=== PATIENT | female | born 1990 | race Caucasian/White ===

== ENCOUNTER 2018-11-15 19:56 | Emergency (ER) | payer MEDICAID, SELFPAY ==
--- NOTE | 2018-11-15 20:51 | W.ED.GENAD ---
Discharge Plan Disposition Patient Disposition: HOME Condition: Good Discharge Details Chief Complaint: RespSymp Clinical Impression: Bronchitis, RAD (reactive airway disease) Primary Care Provider: Justino Alvarez ED Provider: Bruce Stone Meds and New Rx's Prescriptions: New azithromycin 250 mg tablet 250 mg PO DAILY 4 Days Qty: 4 RF: 0 prednisone 20 mg tablet 40 mg PO DAILY Qty: 6 RF: 0 albuterol sulfate 90 mcg/actuation HFA aerosol inhaler 2 puff IH Q4H PRN (Reason: shortness of breath or wheezing) Qty: 8.5 RF: 0 Discharge Instructions Instructions: Acute Bronchitis (ED), Reactive Airways Disease (ED) Additional Instructions: Use inhaler every 4-6 hours as needed for cough and wheezing. Antibiotic and steroid once a night. Follow-up with primary care as planned. Return to the emergency department if fever, worsening shortness of breath, chest pain, other concerns. Referrals: Justino Alvarez [Primary Care Provider] - Discharge Data Discharge Date/Time-TO BE ENTERED AT DEPARTURE: 11/15/18 22:35 Medical Decision Making Patient is presenting with a month of respiratory symptoms. Likely viral with residual reactive airway. Could be atypical. She is afebrile here. She did have some expiratory wheezing and a few rhonchi on exam. She was given an albuterol and felt that her breathing was much better. Vital signs obtained after albuterol show a tachycardia but normal O2 saturation on room air. Urine test negative and her chest x-ray was obtained. Per my review there is no infiltrate, preliminary radiology feels that there is some inflammation/infection with bronchial wall thickening in the right hilum.. We will go ahead and cover with azithromycin. Will also give a few days of prednisone. Will send home with albuterol inhaler. We will have her follow up with her primary care as already scheduled. Return to ED if any worsening symptoms. Patient's heart rate went up after albuterol. Did not really come down but she felt much better. She states that she is anxious about being here. Will discharge home at this time. HPI General Mode of arrival: ambulatory. Date/Time Provider Initiated Documentation: 11/15/18 20:30. Limitations to Documentation: no limitations. Information obtained by: patient. HPI Narrative: Patient here with complaint of cough and chest congestion for almost a month. She has been unable to get in to see her primary care physician who is over in [place]. Initially, she did have fever and congestion but subsequently has just had continued cough, chest congestion, mild shortness of breath. She feels she is getting slightly worse over time instead of better. She denies chest pain. She has a little bit of left earache and a scratchy throat. She has no abdominal pain, nausea, vomiting, diarrhea. She does not smoke. She is not exposed to secondhand smoke. She does not have a history of asthma. She finally came to ED as here PCP cannot see her for another 3 weeks. Related Data Home Medications Medication Instructions Recorded Confirmed albuterol sulfate 2 puff IH Q4H PRN #8.5 gm 11/15/18 azithromycin 250 mg PO DAILY 4 Days #4 tab 11/15/18 prednisone 40 mg PO DAILY #6 tab 11/15/18 Previous Rx's Medication Instructions Recorded albuterol sulfate 2 puff IH Q4H PRN #8.5 gm 11/15/18 azithromycin 250 mg PO DAILY 4 Days #4 tab 11/15/18 prednisone 40 mg PO DAILY #6 tab 11/15/18 Allergies Allergy/AdvReac Type Severity Reaction Status Date / Time Penicillins Allergy Intermediate hives Verified 11/15/18 21:06 Review of Systems Constitutional Denies chills, Denies fever(s), Denies headache(s), Denies malaise, Denies poor appetite and Denies weakness Eyes Denies eye discharge and Denies eye pain ENT Denies change in voice, Reports otalgia, Denies facial pain, Denies headache(s), Denies nasal congestion, Denies neck pain, Denies sinus pain, Denies sinus pressure and Denies sore throat Cardiovascular Denies chest pain, Denies diaphoresis, Denies syncope, Denies leg edema, Denies lightheadedness, Denies palpitations, Denies dyspnea and Reports dyspnea on exertion (mild) Respiratory Reports chest congestion, Reports cough, Denies dyspnea and Reports dyspnea on exertion (mild) Gastrointestinal Denies abdominal pain, Denies diarrhea, Denies nausea and Denies vomiting Musculoskeletal Denies back pain, Denies myalgias, Denies neck pain and Denies numbness Neurologic Denies syncope, Denies headache(s), Denies numbness and Denies weakness Endocrine Denies palpitations [facility] Surgical History S/P unilateral salpingo-oophorectomy (Inactive) Social History Smoking/Tobacco Use Status: Never Exam Const General: cooperative, comfortable and no acute distress Orientation: alert and oriented x3 HENMT Head: normocephalic and atraumatic Ears: external ears normal and TM's normal bilaterally Face and sinus: normal facial exam Mouth: oropharynx normal and moist mucous membranes Throat: posterior oropharynx normal Eyes Conjunctivae: conjunctivae normal Pupils: PERRL EOM: EOM intact bilaterally Neck Neck: full ROM, no lymphadenopathy, trachea midline and supple Resp Effort & Inspection: normal respiratory effort Auscultation: no rales, rhonchi (few scattered) and wheezes expiratory wheezes and lower bilaterally Cardio Rate: regular rate Rhythm: regular rhythm Heart Sounds: S1 normal and S2 normal Neuro General: alert, oriented x3, no focal motor deficits and CN's II-XI intact bilaterally
[2018-11-15 20:53] VITALS: PULSE 110; RESP 16; O2SAT 98
[2018-11-15] MEDS: Albuterol 2.5 MG/3 ML INH SOLN VIAL UPD (20:53)
--- NOTE | 2018-11-15 20:54 | ED.GENADUL_ITS ---
Discharge Plan Disposition Patient Disposition: HOME Condition: Good Discharge Details Chief Complaint: RespSymp Clinical Impression: Bronchitis, RAD (reactive airway disease) Primary Care Provider: Justino Alvarez ED Provider: Bruce Stone Meds and New Rx's Prescriptions: New azithromycin 250 mg tablet 250 mg PO DAILY 4 Days Qty: 4 RF: 0 prednisone 20 mg tablet 40 mg PO DAILY Qty: 6 RF: 0 albuterol sulfate 90 mcg/actuation HFA aerosol inhaler 2 puff IH Q4H PRN (Reason: shortness of breath or wheezing) Qty: 8.5 RF: 0 Discharge Instructions Instructions: Acute Bronchitis (ED), Reactive Airways Disease (ED) Additional Instructions: Use inhaler every 4-6 hours as needed for cough and wheezing. Antibiotic and steroid once a night. Follow-up with primary care as planned. Return to the emergency department if fever, worsening shortness of breath, chest pain, other concerns. Referrals: Justino Alvarez [Primary Care Provider] - Discharge Data Discharge Date/Time-TO BE ENTERED AT DEPARTURE: 11/15/18 22:35 Medical Decision Making Patient is presenting with a month of respiratory symptoms. Likely viral with residual reactive airway. Could be atypical. She is afebrile here. She did have some expiratory wheezing and a few rhonchi on exam. She was given an albuterol and felt that her breathing was much better. Vital signs obtained after albuterol show a tachycardia but normal O2 saturation on room air. Urine test negative and her chest x-ray was obtained. Per my review there is no infiltrate, preliminary radiology feels that there is some inflammation/infection with bronchial wall thickening in the right hilum.. We will go ahead and cover with azithromycin. Will also give a few days of prednisone. Will send home with albuterol inhaler. We will have her follow up with her primary care as already scheduled. Return to ED if any worsening symptoms. Patient's heart rate went up after albuterol. Did not really come down but she felt much better. She states that she is anxious about being here. Will discharge home at this time. HPI General Mode of arrival: ambulatory . Date/Time Provider Initiated Documentation: 11/15/18 20:30 . Limitations to Documentation: no limitations . Information obtained by: patient . HPI Narrative: Patient here with complaint of cough and chest congestion for almost a month. She has been unable to get in to see her primary care physician who is over in [place]. Initially, she did have fever and congestion but subsequently has just had continued cough, chest congestion, mild shortness of breath. She feels she is getting slightly worse over time instead of better. She denies chest pain. She has a little bit of left earache and a scratchy throat. She has no abdominal pain, nausea, vomit ing, diarrhea. She does not smoke. She is not exposed to secondhand smoke. She does not have a history of asthma. She finally came to ED as here PCP cannot see her for another 3 weeks. Related Data Home Medications Medication Instructions Recorded Confirmed albuterol sulfate 2 puff IH Q4H PRN #8.5 gm 11/15/18 azithromycin 250 mg PO DAILY 4 Days #4 tab 11/15/18 prednisone 40 mg PO DAILY #6 tab 11/15/18 Previous Rx's Medication Instructions Recorded albuterol sulfate 2 puff IH Q4H PRN #8.5 gm 11/15/18 azithromycin 250 mg PO DAILY 4 Days #4 tab 11/15/18 prednisone 40 mg PO DAILY #6 tab 11/15/18 Allergies Allergy/AdvReac Type Severity Reaction Status Date / Time Penicillins Allergy Intermediate hives Verified 11/15/18 21:06 Review of Systems Constitutional Denies chills, Denies fever(s), Denies headache(s), Denies malaise, Denies poor appetite and Denies weakness Eyes Denies eye discharge and Denies eye pain ENT Denies change in voice, Reports otalgia, Denies facial pain, Denies headache(s), Denies nasal congestion, Denies neck pain, Denies sinus pain, Denies sinus pressure and Denies sore throat Cardiovascular Denies chest pain, Denies diaphoresis, Denies syncope, Denies leg edema, Denies lightheadedness, Denies palpitations, Denies dyspnea and Reports dyspnea on exertion (mild) Respiratory Reports chest congestion, Reports cough, Denies dyspnea and Reports dyspnea on exertion (mild) Gastrointestinal Denies abdominal pain, Denies diarrhea, Denies nausea and Denies vomiting Musculoskeletal Denies back pain, Denies myalgias, Denies neck pain and Denies numbness Neurologic Denies syncope, Denies headache(s), Denies numbness and Denies weakness Endocrine Denies palpitations [facility] Surgical History S/P unilateral salpingo-oophorectomy (Inactive) Social History Smoking/Tobacco Use Status: Never Exam Const General: cooperative, comfortable and no acute distress Orientation: alert and oriented x3 HENMT Head: normocephalic and atraumatic Ears: external ears normal and TM's normal bilaterally Face and sinus: normal facial exam Mouth: oropharynx normal and moist mucous membranes Throat: posterior oropharynx normal Eyes Conjunctivae: conjunctivae normal Pupils: PERRL EOM: EOM intact bilaterally Neck Neck: full ROM, no lymphadenopathy, trachea midline and supple Resp Effort & Inspection: normal respiratory effort Auscultation: no rales, rhonchi (few scattered) and wheezes expiratory wheezes and lower bilaterally Cardio Rate: regular rate Rhythm: regular rhythm Heart Sounds: S1 normal and S2 normal Neuro General: alert, oriented x3, no focal motor deficits and CN's II-XI intact bilaterally
--- NOTE | 2018-11-15 21:15 | DI.RAD_ITS ---
SYMPTOMS/DIAGNOSIS: COUGH, WHEEZING PA AND LATERAL CHEST: No priors. The heart size and pulmonary vasculature are within normal limits. No focal consolidating infiltrates, effusions or pneumothoraces are identified. The bones are intact. There is a question of mild bronchial wall thickening in the right hilum. IMPRESSION: Question of bronchial wall thickening in the right hilum. Infectious or inflammatory process can not be excluded.
[2018-11-15 21:16] VITALS: BP 130/84; PULSE 110; RESP 18; TEMP 35.9; O2SAT 97
[2018-11-15 21:23] VITALS: PULSE 126; RESP 16; O2SAT 95
--- NOTE | 2018-11-15 21:48 | DI.VRAD_ITS ---
EXAM: XR Chest, 2 Views EXAM DATE/TIME: 11/15/2018 9:04 PM CLINICAL HISTORY: 28 years old, female; Signs and symptoms; Other: Cough for 4 weeks and wheezing TECHNIQUE: XR of the chest, 2 views. COMPARISON: No relevant prior studies available. FINDINGS: Lungs: Unremarkable. No consolidation. Pleural space: Unremarkable. No pleural effusion. No pneumothorax. Heart/Mediastinum: Bronchial wall thickening in the right hilum represent inflammation or infection of the right hilum. Bones/joints: Unremarkable. IMPRESSION: Bronchial wall thickening in the right hilum represent inflammation or infection of the right hilum. Dictated and Authenticated by: Kvng Ram MD. Ordering:ARLYN Barrera MD
[2018-11-15] MEDS: predniSONE 20 MG TAB 60 MG PO (21:52)
[2018-11-15] MEDS: Albuterol HFA 8 GM 60 PUFF INH IH (21:53)
[2018-11-15] MEDS: Azithromycin 250 MG TAB 500 MG PO (21:53)
[2018-11-15] MEDS: Inhaler, Assist Device 1 EACH MC (21:54)
[2018-11-15 22:34] VITALS: BP 130/84; PULSE 126; RESP 16; TEMP 35.9; O2SAT 95
== END 2018-11-15 22:35 | disposition home or self-care (01) ==
PROVIDERS: Emergency Provider Emergency Medicine; PCP Nurse Practitioner
DX: J20.9 Acute bronchitis, unspecified (principal); J45.909 Unspecified asthma, uncomplicated
CPT/HCPCS: 81025; 94640; 99283; 71046; J7512; J7613